=== PATIENT | male | born 1960 | race Caucasian/White ===

== ENCOUNTER 2016-11-22 06:31 | Inpatient (IN) | payer OTHER ==
[~2016-11-22] VITALS: Ht 182.9 cm; Wt 156.0 kg
[2016-11-22] MEDS ORDERED: OMEP40CA6 PO (06:37)
[2016-11-22] MEDS ORDERED: SODIUM CHLORIDE 0.9% 1,000 ML IV SCH ×2 (06:43→08:09)
[2016-11-22] MEDS ORDERED: ASPIRIN 325 MG TABLET PO STA (06:43)
[2016-11-22] MEDS ORDERED: NITROGLYCERIN/D5W PMX 250 ML IV PRN (07:00)
[2016-11-22] MEDS ORDERED: HEPARIN 5,000 UNITS/ML, 1ML IV ONE (07:00)
[2016-11-22] MEDS ORDERED: NITROGLYCERIN 0.4 MG BOTTLE (25 TABS) SL PRN (07:00)
[2016-11-22] MEDS ORDERED: FENTANYL PF 100 MCG/2ML IVPush PRN (07:00)
[2016-11-22] MEDS ORDERED: NITROGLYCERIN/D5W PMX 250 ML ONE (07:01)
[2016-11-22 07:12] LABS: IS PT STATUS REG ER OR PRE ER? YES
[2016-11-22] MEDS ORDERED: NITROGLYCERIN 5 MG/ML, 10ML ONE (07:24)
[2016-11-22] MEDS ORDERED: BIVALIRUDIN 250 MG ONE ×2 (07:24→08:38)
[2016-11-22] MEDS ORDERED: TICAGRELOR 90 MG TABLET ONE (07:24)
[2016-11-22] MEDS ORDERED: HEPARIN 1,000 UNITS/ML, 10ML ONE (07:24)
[2016-11-22] MEDS ORDERED: FENTANYL PF 100 MCG/2ML ONE (07:24)
[2016-11-22] MEDS ORDERED: VERAPAMIL 2.5 MG/ML, 2ML ONE (07:24)
[2016-11-22] MEDS ORDERED: MIDAZOLAM 1 MG/ML, 5ML ONE (07:24)
[2016-11-22] MEDS ORDERED: LIDOCAINE 2%, 20ML ONE (07:25)
[2016-11-22] MEDS ORDERED: HEPARIN 5,000 UNITS/ML, 1ML ONE (07:43)
[2016-11-22] MEDS ORDERED: ASPIRIN 81 MG TABLET CHEW ONE (07:43)
[2016-11-22] MEDS ORDERED: ONDANSETRON 2MG/ML, 2ML IVPush PRN (08:30)
[2016-11-22] MEDS ORDERED: PANTOPROZOLE 40MG TABLET PO SCH (08:30)
[2016-11-22] MEDS ORDERED: BISACODYL 5 MG EC TABLET PO PRN (08:30)
[2016-11-22] MEDS ORDERED: ZOLPIDEM 5MG TABLET PO PRN (08:30)
[2016-11-22] MEDS ORDERED: ACETAMINOPHEN 325 MG TABLET PO PRN (08:30)
[2016-11-22] MEDS: TICAGRELOR 90 MG TABLET PO SCH ×2 (10:04→20:00)
[2016-11-22] MEDS: METOPROLOL SUCCINATE 25 MG TAB.ER.24H PO SCH (10:43)
[2016-11-22] MEDS: ASPIRIN 81 MG TABLET EC PO SCH (10:43)
[2016-11-22] MEDS: OMEPRAZOLE 20 MG CAPSULE.DR PO SCH (11:00)
[2016-11-22] MEDS ORDERED: ENALAPRILAT 1.25 MG/ML, 2ML IV PRN (11:30)
[2016-11-22] MEDS: ATORVASTATIN 80 MG TABLET PO SCH (20:00)
[2016-11-23 04:49] LABS: BLOOD UREA NITROGEN 13 mg/dL (7-18)
[2016-11-23 06:02] VITALS: BP 130/90
[2016-11-23] MEDS: METOPROLOL SUCCINATE 25 MG TAB.ER.24H PO SCH (06:32)
[2016-11-23] MEDS: LISINOPRIL 5 MG TABLET PO SCH (10:15)
[2016-11-23] MEDS: TICAGRELOR 90 MG TABLET PO SCH ×2 (10:15→21:14)
[2016-11-23] MEDS: ASPIRIN 81 MG TABLET EC PO SCH (10:16)
[2016-11-23] MEDS: OMEPRAZOLE 20 MG CAPSULE.DR PO SCH (10:16)
[2016-11-23 15:14] VITALS: BP 115/72
[2016-11-23 20:37] VITALS: BP 148/83
[2016-11-23] MEDS: ATORVASTATIN 80 MG TABLET PO SCH (21:14)
[2016-11-24 02:56] VITALS: BP 123/68
[2016-11-24 05:19] LABS: BLOOD UREA NITROGEN 15 mg/dL (7-18)
[2016-11-24] MEDS: METOPROLOL SUCCINATE 25 MG TAB.ER.24H PO SCH (06:28)
[2016-11-24 08:11] VITALS: BP 142/84
[2016-11-24] MEDS: ASPIRIN 81 MG TABLET EC PO SCH (08:33)
[2016-11-24] MEDS: TICAGRELOR 90 MG TABLET PO SCH (08:33)
[2016-11-24] MEDS: OMEPRAZOLE 20 MG CAPSULE.DR PO SCH (08:33)
[2016-11-24] MEDS: LISINOPRIL 5 MG TABLET PO SCH (08:34)
[2016-11-24] MEDS ORDERED: TICA90TA PO (08:53)
[2016-11-24] MEDS ORDERED: METO25TA91 PO (08:53)
[2016-11-24] MEDS ORDERED: LISI5TAB7 PO (08:53)
[2016-11-24] MEDS ORDERED: ASPI-621 PO (08:53)
[2016-11-24] MEDS ORDERED: ATOR80TA75 PO (08:53)
== END 2016-11-24 11:11 | disposition home or self-care (01) | DRG 247 ==
LOC: ED 07:09 → EDIP 07:11 → CCU 08:24 → 5SO 11-23 11:51 → DCLOUNGE 11-24 10:37
PROVIDERS: ADMIT Internal Medicine Cardiovascular Disease; ATTEND Internal Medicine Cardiovascular Disease
PROC: 027034Z Dilation of Coronary Artery, One Artery with Drug-eluting Intraluminal Device, Percutaneous Approach (ICD-10-PCS; principal; 2016-11-22)
PROC: B2111ZZ Fluoroscopy of Multiple Coronary Arteries using Low Osmolar Contrast (ICD-10-PCS; 2016-11-22)
PROC: 4A023N7 Measurement of Cardiac Sampling and Pressure, Left Heart, Percutaneous Approach (ICD-10-PCS; 2016-11-22)
DX: I21.19 ST elevation (STEMI) myocardial infarction involving other coronary artery of inferior wall (principal); I47.2 Ventricular tachycardia; Z68.42 Body mass index [BMI] 45.0-49.9, adult; F17.210 Nicotine dependence, cigarettes, uncomplicated; I25.10 Atherosclerotic heart disease of native coronary artery without angina pectoris; K21.9 Gastro-esophageal reflux disease without esophagitis; E78.5 Hyperlipidemia, unspecified; I10 Essential (primary) hypertension; E66.8 Other obesity; Z71.6 Tobacco abuse counseling; Z82.49 Family history of ischemic heart disease and other diseases of the circulatory system
CPT/HCPCS: 36415; 71010; 80047; 80048; 82040; 84484; 85014; 85018; 85025; 85520; 85610; 85730; 87081; 93005; 93306; 93458; 96365; 96375; C1769; C1894; J0583; J1644; J2250; J3010; J3490; C1725; C1874; C1887; J7030; Q9967

== ENCOUNTER → 2017-01-06 | Outpatient (CLI) | payer OTHER ==
[~2017-01-06] MED LIST: ASPI-621 PO; ATOR80TA75 PO; LISI5TAB7 PO; METO25TA91 PO; OMEP40CA6 PO; TICA90TA PO
== END | disposition home or self-care (01) ==
LOC: CVU 07:46
PROVIDERS: ATTEND Internal Medicine Cardiovascular Disease
DX: I21.21 ST elevation (STEMI) myocardial infarction involving left circumflex coronary artery (principal); I35.0 Nonrheumatic aortic (valve) stenosis
CPT/HCPCS: 93306

== ENCOUNTER → 2017-01-20 | Outpatient (CLI) | payer OTHER ==
[~2017-01-20] MED LIST changes: +REGADENOSON 0.4 MG/5 ML SYRINGE ONE
== END | disposition home or self-care (01) ==
LOC: CFH 07:38
PROVIDERS: ATTEND Physician Assistant Medical
DX: I25.9 Chronic ischemic heart disease, unspecified (principal); I21.21 ST elevation (STEMI) myocardial infarction involving left circumflex coronary artery
CPT/HCPCS: 78452; 93017; A9502; J2785

== ENCOUNTER 2017-01-29 06:15 | Day surgery (SDC) | payer OTHER ==
[2017-01-28 13:24] VITALS: BP 177/77
[2017-01-28 14:10] LABS: ASPARTATE AMINO TRANSFERASE 33 U/L (15-37); BLOOD UREA NITROGEN 11 mg/dL (7-18)
[~2017-01-29] VITALS: Ht 185.4 cm; Wt 143.2 kg
[~2017-01-29 06:15] MED LIST changes: +LISI-424 PO; -REGADENOSON 0.4 MG/5 ML SYRINGE ONE; +TERB250T3 PO
[2017-01-29] MEDS ORDERED: HEPARIN 1,000 UNITS/ML, 10ML ONE (07:18)
[2017-01-29] MEDS ORDERED: BIVALIRUDIN 250 MG ONE (07:18)
[2017-01-29] MEDS ORDERED: LIDOCAINE 2%, 20ML ONE (07:18)
[2017-01-29] MEDS ORDERED: MIDAZOLAM 1 MG/ML, 5ML ONE (07:18)
[2017-01-29] MEDS ORDERED: TICAGRELOR 90 MG TABLET ONE (07:18)
[2017-01-29] MEDS ORDERED: FENTANYL PF 100 MCG/2ML ONE (07:18)
[2017-01-29] MEDS ORDERED: VERAPAMIL 2.5 MG/ML, 2ML ONE (07:18)
[2017-01-29] MEDS ORDERED: ACETAMINOPHEN 325 MG TABLET PO PRN (08:30)
== END 2017-01-29 10:51 ==
LOC: CACL 06:15
PROVIDERS: ATTEND Internal Medicine Cardiovascular Disease
DX: I25.10 Atherosclerotic heart disease of native coronary artery without angina pectoris (principal); E78.2 Mixed hyperlipidemia; Z98.61 Coronary angioplasty status; Z79.82 Long term (current) use of aspirin
CPT/HCPCS: 36415; 71020; 80053; 85025; 85610; 85730; 93005; 93458; 99156; 99157; C1769; C1894; J1644; J2250; J3010; J3490; Q9967; J0583

== ENCOUNTER → 2017-08-30 | Outpatient (CLI) | payer OTHER ==
[~2017-08-30] MED LIST changes: +ATOR-2 PO; -ATOR80TA75 PO
== END | disposition home or self-care (01) ==
LOC: CVU 06:44
PROVIDERS: ATTEND Internal Medicine Cardiovascular Disease
DX: E78.5 Hyperlipidemia, unspecified (principal); Z98.61 Coronary angioplasty status; Z87.891 Personal history of nicotine dependence
CPT/HCPCS: 93880

== ENCOUNTER → 2017-11-16 | Outpatient (CLI) | payer OTHER ==
[~2017-11-16] MED LIST changes: +REGADENOSON 0.4 MG/5 ML SYRINGE ONE
== END ==
LOC: CFH 07:29
PROVIDERS: ATTEND Internal Medicine Cardiovascular Disease
DX: I25.10 Atherosclerotic heart disease of native coronary artery without angina pectoris (principal); I10 Essential (primary) hypertension; I45.2 Bifascicular block
CPT/HCPCS: 78452; 93017; A9502; J2785

== ENCOUNTER → 2018-02-21 | Outpatient (CLI) | payer OTHER ==
[~2018-02-21] MED LIST changes: -REGADENOSON 0.4 MG/5 ML SYRINGE ONE
== END | disposition home or self-care (01) ==
LOC: CVU 06:47
PROVIDERS: ATTEND Internal Medicine Cardiovascular Disease
DX: I11.9 Hypertensive heart disease without heart failure (principal); E66.01 Morbid (severe) obesity due to excess calories; I25.10 Atherosclerotic heart disease of native coronary artery without angina pectoris; E78.5 Hyperlipidemia, unspecified; K21.9 Gastro-esophageal reflux disease without esophagitis; F17.210 Nicotine dependence, cigarettes, uncomplicated; Z98.61 Coronary angioplasty status; Z79.82 Long term (current) use of aspirin
CPT/HCPCS: 0399T; 93306

== ENCOUNTER → 2019-06-19 | Outpatient (CLI) | payer OTHER ==
[~2019-06-19] MED LIST changes: -ASPI-621 PO; +ASPI81TA45 PO; +OMEP40CA42 PO; -OMEP40CA6 PO
[2019-06-19 08:48] LABS: MICROSCOPIC AUTO
[2019-06-19 08:53] LABS: ALBUMIN 3.3 g/dL (3.4-5.0); ANION GAP 5 mmol/L (5-15); CALCIUM 8.5 mg/dL (8.5-10.1); CHLORIDE 109 mmol/L (98-107)
[2019-06-19 08:57] LABS: ALANINE AMINOTRANSFERASE 69 U/L (12-78); ALKALINE PHOSPHATASE 123 U/L (45-117); BILIRUBIN,TOTAL 0.6 mg/dL (0.2-1.0); CREATININE 0.86 mg/dL (0.7-1.3); TOTAL PROTEIN 7.5 g/dL (6.4-8.2)
== END | disposition home or self-care (01) ==
LOC: STAR 07:42
PROVIDERS: ATTEND Urology
DX: Z01.818 Encounter for other preprocedural examination (principal); N43.3 Hydrocele, unspecified; F15.10 Other stimulant abuse, uncomplicated; Z87.891 Personal history of nicotine dependence
CPT/HCPCS: 36415; 80053; 81001; 87077; 87086; 93005

== ENCOUNTER 2019-07-05 11:20 | Day surgery (SDC) | payer OTHER ==
[~2019-07-05] VITALS: Ht 185.4 cm; Wt 140.0 kg
[2019-07-05] MEDS ORDERED: LACTATED RINGERS 1,000 ML IV SCH (12:13)
[2019-07-05 12:14] VITALS: BP 166/108
[2019-07-05] MEDS ORDERED: LIDOCAINE-MPF 1%, 2ML INFIL ONE (12:30)
[2019-07-05] MEDS ORDERED: BUPIVACAINE/PF 0.5% ONE (13:17)
[2019-07-05] MEDS ORDERED: MIDAZOLAM 1 MG/ML, 2ML ONE (13:25)
[2019-07-05] MEDS ORDERED: FENTANYL PF 250 MCG/5ML ONE (13:25)
[2019-07-05] MEDS ORDERED: KETOROLAC 30 MG/1 ML ONE (13:27)
[2019-07-05] MEDS ORDERED: hydrALAzine 20 MG/ML, 1ML ONE (13:27)
[2019-07-05] MEDS ORDERED: ACETAMINOPHEN 325 MG TABLET PO PRN (14:00)
[2019-07-05] MEDS ORDERED: hydrALAzine 20 MG/ML, 1ML IV PRN (14:00)
[2019-07-05] MEDS ORDERED: HYDROmorphone 2 MG/ML, 1ML IVPush PRN (14:00)
[2019-07-05] MEDS ORDERED: FENTANYL PF 100 MCG/2ML IV PRN (14:00)
[2019-07-05] MEDS ORDERED: MEPERIDINE/PF 25MG/ML,1ML IVPush PRN (14:00)
[2019-07-05] MEDS ORDERED: PROMETHAZINE 25 MG/ML, 1ML IV PRN (14:00)
[2019-07-05] MEDS ORDERED: OXYcodone 5 MG/5 ML ORAL.SOL UDC PO PRN (14:00)
[2019-07-05] MEDS ORDERED: ONDANSETRON 2MG/ML, 2ML ONE (14:11)
[2019-07-05] MEDS ORDERED: LIDOCAINE-MPF 2% ,5ML ONE (14:11)
[2019-07-05] MEDS ORDERED: CEFAZOLIN 1,000 MG ONE (14:11)
[2019-07-05] MEDS ORDERED: ROCURONIUM 10MG/ML,5ML ONE (14:11)
[2019-07-05] MEDS ORDERED: SUGAMMADEX 200 MG/2 ML IVPush ONE (14:11)
[2019-07-05] MEDS ORDERED: DEXAMETHASONE 4 MG/ML, 1ML ONE (14:11)
[2019-07-05] MEDS ORDERED: PROPOFOL 10 MG/ML, 20ML ONE (14:11)
[2019-07-05] MEDS ORDERED: MEPERIDINE/PF 100 MG/ML ONE (14:28)
== END 2019-07-05 17:35 | disposition home or self-care (01) ==
LOC: OUT 11:20
PROVIDERS: ATTEND Urology
DX: N43.3 Hydrocele, unspecified (principal); I10 Essential (primary) hypertension; E78.5 Hyperlipidemia, unspecified; K21.9 Gastro-esophageal reflux disease without esophagitis; I25.2 Old myocardial infarction; I25.10 Atherosclerotic heart disease of native coronary artery without angina pectoris; Z79.899 Other long term (current) drug therapy; Z87.891 Personal history of nicotine dependence; Z82.49 Family history of ischemic heart disease and other diseases of the circulatory system; Z90.3 Acquired absence of stomach [part of]; Z98.890 Other specified postprocedural states
CPT/HCPCS: 55041; J0360; J0690; J1100; J1885; J2175; J2250; J2405; J2704; J3010; J7120

== ENCOUNTER → 2020-01-29 | Outpatient (CLI) | payer OTHER ==
[~2020-01-29] MED LIST changes: +REGADENOSON 0.4 MG/5 ML SYRINGE ONE
== END | disposition home or self-care (01) ==
LOC: CFH 07:32
PROVIDERS: ATTEND Internal Medicine Cardiovascular Disease
DX: I45.10 Unspecified right bundle-branch block (principal); Z98.61 Coronary angioplasty status
CPT/HCPCS: 78452; 93017; A9502; J2785

== ENCOUNTER 2020-06-24 15:14 | Inpatient (IN) | payer OTHER ==
[~2020-06-24] VITALS: Ht 185.4 cm; Wt 134.6 kg
[~2020-06-24 15:14] MED LIST changes: -REGADENOSON 0.4 MG/5 ML SYRINGE ONE
--- NOTE | 2020-06-24 16:15 | NUR ---
PT TO ROOM FROM LOBBY, TACHYPNEIC, SPO2 94-95% ON 15L/NRB, ABLE TO SPEAK 4-WORD SENTENCES, AOX4, COMFORT MEASURES PROVIDED, CALL LIGHT WITHIN REACH.
[2020-06-24] MEDS ORDERED: HYDR200T72 PO (16:25)
[2020-06-24] MEDS ORDERED: ZINC50TA47 PO (16:25)
[2020-06-24] MEDS ORDERED: OMEG1CAP39 PO (16:25)
[2020-06-24] MEDS ORDERED: CHOL10003 PO (16:25)
[2020-06-24] MEDS ORDERED: ACETAMINOPHEN 500 MG TABLET ONE (16:27)
[2020-06-24] MEDS ORDERED: ACETAMINOPHEN 500 MG TABLET PO ONE (16:30)
[2020-06-24] MEDS ORDERED: SODIUM CHLORIDE FLUSH 10ML SYR IVF ONE ×2 (16:30→17:00)
[2020-06-24] MEDS ORDERED: CEFTRIAXONE PMX 1GM/50ML 50 ML ONE (16:39)
[2020-06-24 16:51] LABS: ALBUMIN 2.4 g/dL (3.4-5.0); ANION GAP 7 mmol/L (5-15); CALCIUM 7.9 mg/dL (8.5-10.1); CHLORIDE 103 mmol/L (98-107)
[2020-06-24] MEDS: ASCORBIC ACID 500 MG TABLET PO SCH ×2 (16:51→20:53)
[2020-06-24] MEDS: AZITHROMYCIN 500 MG in SODIUM CHLORIDE 0.9% 250 ML IV SCH (16:51)
[2020-06-24] MEDS: CEFTRIAXONE PMX 2GM/50ML 50 ML IVPB SCH (16:51)
[2020-06-24] MEDS ORDERED: ENOXAPARIN 40 MG/0.4 ML ONE (16:53)
--- NOTE | 2020-06-24 16:57 | NUR ---
PT UPRIGHT ON GURNEY, TALKING ON PHONE AT TIMES, RESPONDS APPROP TO STAFF, VSS WHILE ON 15L/NRB, NO NEEDS AT THIS TIME, SEEN BY [facility], CALL LIGHT WITHIN REACH.
[2020-06-24 16:58] LABS: ALANINE AMINOTRANSFERASE 36 U/L (12-78); ALKALINE PHOSPHATASE 97 U/L (45-117); BILIRUBIN,TOTAL 0.8 mg/dL (0.2-1.0); CREATININE 1.06 mg/dL (0.7-1.3); TOTAL PROTEIN 7.6 g/dL (6.4-8.2); TROPONIN I 0.029 ng/mL (0.000-0.045)
[2020-06-24] MEDS ORDERED: morphine SULFATE 10 MG/ML, 1ML IVPush PRN (17:00)
[2020-06-24] MEDS ORDERED: ENOXAPARIN 40 MG/0.4 ML SQ SCH (17:00)
[2020-06-24] MEDS ORDERED: ACETAMINOPHEN 325 MG TABLET PO PRN (17:00)
[2020-06-24] MEDS ORDERED: CEFTRIAXONE PMX 1GM/50ML 50 ML IVPB ONE (17:00)
[2020-06-24] MEDS ORDERED: ONDANSETRON 2MG/ML, 2ML IVPush PRN (17:00)
[2020-06-24] MEDS ORDERED: LABETALOL 5MG/ML, 20ML IVPush PRN (17:00)
[2020-06-24] MEDS ORDERED: ENALAPRILAT 1.25 MG/ML, 2ML IVPush PRN (17:00)
[2020-06-24] MEDS ORDERED: AZITHROMYCIN 500 MG in SODIUM CHLORIDE 0.9% 250 ML IV ONE (17:00)
[2020-06-24] MEDS ORDERED: POLYETHYLENE GLYCOL 17 GM PACKET PO PRN (17:00)
[2020-06-24] MEDS ORDERED: BISACODYL 10 MG SUPP PR PRN (17:00)
[2020-06-24] MEDS ORDERED: OXYcodone IR 5MG TABLET PO PRN (17:00)
--- NOTE | 2020-06-24 17:10 | NUR ---
LAB AT BS FOR REDRAW
--- NOTE | 2020-06-24 17:20 | NUR ---
RT AT BS
[2020-06-24] MEDS ORDERED: REMDESIVIR 200 MG in SODIUM CHLORIDE 0.9% 250 ML IVPB ONE (17:30)
--- NOTE | 2020-06-24 17:30 | NUR ---
Pt to be admitted to CCU, room 541. Report called to [facility].
[2020-06-24 17:39] LABS: BASOPHILS % (AUTO) 0 % (0-1); EOSINOPHILS % (AUTO) 0 % (1-7); LYMPHOCYTES % (AUTO) 11 % (22-44); MEAN CORPUSCULAR HEMOGLOBIN 32.7 pg (27.5-34.5); MEAN CORPUSCULAR HGB CONC 34.5 g/dL (33.2-36.2); MEAN PLATELET VOLUME 9.2 fL (7.4-10.4); MONOCYTES % (AUTO) 12 % (2-9); NEUTROPHILS % (AUTO) 77 % (42-75); PLATELET COUNT 180 x10^3/uL (130-400); RED BLOOD COUNT 4.45 x10^6/uL (4.38-5.82); RED CELL DISTRIBUTION WIDTH 14.1 % (9.4-14.8)
[2020-06-24 17:47] LABS: MD NO
[2020-06-24 23:26] LABS: TROPONIN I 0.024 ng/mL (0.000-0.045)
[2020-06-25 05:20] LABS: ALBUMIN 2.3 g/dL (3.4-5.0); ANION GAP 6 mmol/L (5-15); CALCIUM 8.1 mg/dL (8.5-10.1); CHLORIDE 104 mmol/L (98-107)
[2020-06-25 05:23] LABS: ALANINE AMINOTRANSFERASE 33 U/L (12-78); ALKALINE PHOSPHATASE 95 U/L (45-117); BILIRUBIN,TOTAL 0.8 mg/dL (0.2-1.0); CREATININE 0.93 mg/dL (0.7-1.3); TOTAL PROTEIN 7.4 g/dL (6.4-8.2)
[2020-06-25 05:33] LABS: BASOPHILS % (AUTO) 0 % (0-1); EOSINOPHILS % (AUTO) 0 % (1-7); LYMPHOCYTES % (AUTO) 13 % (22-44); MEAN CORPUSCULAR HEMOGLOBIN 32.7 pg (27.5-34.5); MEAN CORPUSCULAR HGB CONC 34.8 g/dL (33.2-36.2); MEAN PLATELET VOLUME 9.9 fL (7.4-10.4); MONOCYTES % (AUTO) 9 % (2-9); NEUTROPHILS % (AUTO) 78 % (42-75); PLATELET COUNT 192 x10^3/uL (130-400); RED BLOOD COUNT 4.44 x10^6/uL (4.38-5.82); RED CELL DISTRIBUTION WIDTH 14.3 % (9.4-14.8)
[2020-06-25 05:36] LABS: MD NO
[2020-06-25] MEDS: ZINC SULFATE 220 MG CAPSULE PO SCH (08:16)
[2020-06-25] MEDS: SENNA/DOCUSATE TABLET PO SCH (08:17)
[2020-06-25] MEDS: ASCORBIC ACID 500 MG TABLET PO SCH ×2 (08:17→16:05)
[2020-06-25] MEDS: CHOLECALCIFEROL 5,000u TAB PO SCH (08:17)
[2020-06-25] MEDS: THIAMINE 100MG TABLET PO SCH (08:17)
[2020-06-25] MEDS: DEXAMETHASONE 4 MG/ML, 1ML IVPush SCH (08:17)
[2020-06-25] MEDS: ENOXAPARIN 30 MG/0.3 ML SQ SCH ×2 (10:57→23:48)
[2020-06-25] MEDS: NICOTINE 21 MG/24 HR PATCH.TD24 TD SCH (10:57)
[2020-06-25] MEDS ORDERED: LORazepam 2 MG/ML, 1ML IVPush PRN (11:30)
[2020-06-25] MEDS ORDERED: POTASSIUM CHLORIDE 20 MEQ TAB.ER.PRT PO ONE (11:30)
[2020-06-25] MEDS: ALBUTEROL HFA 90 MCG/SPRAY INH SCH ×3 (12:16→23:48)
[2020-06-25] MEDS: DIAZEPAM 10 MG TABLET PO SCH ×2 (16:05→23:48)
[2020-06-25] MEDS: CEFTRIAXONE PMX 2GM/50ML 50 ML IVPB SCH (16:06)
[2020-06-25] MEDS: FUROSEMIDE 40 MG/4 ML IV SCH (16:24)
[2020-06-25] MEDS: AZITHROMYCIN 500 MG in SODIUM CHLORIDE 0.9% 250 ML IV SCH ×2 (16:24→16:40)
[2020-06-25] MEDS: ATORVASTATIN 80 MG TABLET PO SCH (20:13)
[2020-06-25] MEDS: REMDESIVIR 100 MG in SODIUM CHLORIDE 0.9% 250 ML IVPB SCH (20:13)
[2020-06-25 20:30] VITALS: BP 147/89
[2020-06-26 00:54] VITALS: BP 126/64
[2020-06-26] MEDS: ALBUTEROL HFA 90 MCG/SPRAY INH SCH ×4 (05:34→22:54)
[2020-06-26 06:54] VITALS: BP 132/80
[2020-06-26 07:54] LABS: ALBUMIN 2.3 g/dL (3.4-5.0); ANION GAP 6 mmol/L (5-15); CALCIUM 8.6 mg/dL (8.5-10.1); CHLORIDE 109 mmol/L (98-107)
[2020-06-26 08:05] LABS: ALANINE AMINOTRANSFERASE 34 U/L (12-78); ALKALINE PHOSPHATASE 99 U/L (45-117); BILIRUBIN,TOTAL 0.8 mg/dL (0.2-1.0); CREATININE 0.78 mg/dL (0.7-1.3); TOTAL PROTEIN 7.5 g/dL (6.4-8.2)
[2020-06-26] MEDS: ZINC SULFATE 220 MG CAPSULE PO SCH (08:47)
[2020-06-26] MEDS: THIAMINE 100MG TABLET PO SCH (08:47)
[2020-06-26] MEDS: ASPIRIN 81 MG TABLET EC PO SCH (08:48)
[2020-06-26] MEDS: SENNA/DOCUSATE TABLET PO SCH (08:48)
[2020-06-26] MEDS: ASCORBIC ACID 500 MG TABLET PO SCH ×2 (08:49→17:30)
[2020-06-26] MEDS: DIAZEPAM 10 MG TABLET PO SCH ×2 (08:49→17:30)
[2020-06-26] MEDS: CHOLECALCIFEROL 5,000u TAB PO SCH (08:49)
[2020-06-26] MEDS: FUROSEMIDE 40 MG/4 ML IV SCH ×2 (08:50→17:31)
[2020-06-26] MEDS: DEXAMETHASONE 4 MG/ML, 1ML IVPush SCH (08:50)
[2020-06-26] MEDS ORDERED: POTASSIUM CHLORIDE 20 MEQ TAB.ER.PRT PO SCH (09:00)
[2020-06-26 12:02] VITALS: BP 146/78
[2020-06-26] MEDS: NICOTINE 21 MG/24 HR PATCH.TD24 TD SCH (12:16)
[2020-06-26] MEDS: CEFTRIAXONE PMX 2GM/50ML 50 ML IVPB SCH (17:37)
[2020-06-26 19:05] VITALS: BP 143/83
[2020-06-26] MEDS: AZITHROMYCIN 500 MG in SODIUM CHLORIDE 0.9% 250 ML IV SCH (19:08)
[2020-06-26] MEDS: REMDESIVIR 100 MG in SODIUM CHLORIDE 0.9% 250 ML IVPB SCH (20:58)
[2020-06-26] MEDS: ATORVASTATIN 80 MG TABLET PO SCH (20:58)
[2020-06-27 00:36] VITALS: BP 144/74
[2020-06-27] MEDS: ENOXAPARIN 40 MG/0.4 ML SQ SCH (00:46)
[2020-06-27] MEDS: DIAZEPAM 10 MG TABLET PO SCH ×3 (01:00→17:31)
[2020-06-27] MEDS: ALBUTEROL HFA 90 MCG/SPRAY INH SCH ×4 (05:17→22:55)
[2020-06-27 06:26] LABS: ALBUMIN 2.3 g/dL (3.4-5.0); ANION GAP 6 mmol/L (5-15); CALCIUM 8.5 mg/dL (8.5-10.1); CHLORIDE 108 mmol/L (98-107)
[2020-06-27 06:29] LABS: ALANINE AMINOTRANSFERASE 46 U/L (12-78); ALKALINE PHOSPHATASE 96 U/L (45-117); BILIRUBIN,TOTAL 0.7 mg/dL (0.2-1.0); CREATININE 0.75 mg/dL (0.7-1.3); TOTAL PROTEIN 7.3 g/dL (6.4-8.2)
[2020-06-27 08:02] VITALS: BP 147/88
[2020-06-27] MEDS: ZINC SULFATE 220 MG CAPSULE PO SCH (08:50)
[2020-06-27] MEDS: ASCORBIC ACID 500 MG TABLET PO SCH ×2 (08:50→17:31)
[2020-06-27] MEDS: ASPIRIN 81 MG TABLET EC PO SCH (08:51)
[2020-06-27] MEDS: SENNA/DOCUSATE TABLET PO SCH (08:51)
[2020-06-27] MEDS: DEXAMETHASONE 4 MG/ML, 1ML IVPush SCH (08:51)
[2020-06-27] MEDS: THIAMINE 100MG TABLET PO SCH (08:51)
[2020-06-27] MEDS: CHOLECALCIFEROL 5,000u TAB PO SCH (08:51)
[2020-06-27 14:00] VITALS: BP 141/83
[2020-06-27] MEDS: NICOTINE 21 MG/24 HR PATCH.TD24 TD SCH (14:03)
[2020-06-27] MEDS: CEFTRIAXONE PMX 2GM/50ML 50 ML IVPB SCH (17:32)
[2020-06-27] MEDS: AZITHROMYCIN 500 MG in SODIUM CHLORIDE 0.9% 250 ML IV SCH (18:38)
[2020-06-27 19:15] VITALS: BP 148/91
[2020-06-27] MEDS: ATORVASTATIN 80 MG TABLET PO SCH (20:36)
[2020-06-27] MEDS: REMDESIVIR 100 MG in SODIUM CHLORIDE 0.9% 250 ML IVPB SCH (20:36)
[2020-06-28] VITALS (10 sets, daily range): BP systolic 146–187; BP diastolic 73–106
[2020-06-28] MEDS: ENOXAPARIN 40 MG/0.4 ML SQ SCH (00:53)
[2020-06-28] MEDS: DIAZEPAM 10 MG TABLET PO SCH ×3 (01:03→16:45)
[2020-06-28] MEDS: hydrALAzine 20 MG/ML, 1ML IV PRN ×2 (01:25→20:48)
[2020-06-28] MEDS: ALBUTEROL HFA 90 MCG/SPRAY INH SCH ×3 (05:29→16:45)
[2020-06-28] MEDS ORDERED: hydrALAzine 20 MG/ML, 1ML IV ONE (06:00)
[2020-06-28 06:17] LABS: CHLORIDE 107 mmol/L (98-107)
[2020-06-28 06:30] LABS: ALANINE AMINOTRANSFERASE 62 U/L (12-78); ALBUMIN 2.3 g/dL (3.4-5.0); ALKALINE PHOSPHATASE 99 U/L (45-117); ANION GAP 6 mmol/L (5-15); BILIRUBIN,TOTAL 0.8 mg/dL (0.2-1.0); CALCIUM 8.2 mg/dL (8.5-10.1); CREATININE 0.62 mg/dL (0.7-1.3); TOTAL PROTEIN 7.3 g/dL (6.4-8.2)
[2020-06-28] MEDS: SENNA/DOCUSATE TABLET PO SCH (09:04)
[2020-06-28] MEDS: CHOLECALCIFEROL 5,000u TAB PO SCH (09:05)
[2020-06-28] MEDS: ASCORBIC ACID 500 MG TABLET PO SCH ×2 (09:05→16:45)
[2020-06-28] MEDS: AMLODIPINE 10 MG TAB PO SCH (09:05)
[2020-06-28] MEDS: THIAMINE 100MG TABLET PO SCH (09:05)
[2020-06-28] MEDS: ASPIRIN 81 MG TABLET EC PO SCH (09:05)
[2020-06-28] MEDS: ZINC SULFATE 220 MG CAPSULE PO SCH (09:05)
[2020-06-28] MEDS: DEXAMETHASONE 4 MG/ML, 1ML IVPush SCH (09:06)
[2020-06-28] MEDS: NICOTINE 21 MG/24 HR PATCH.TD24 TD SCH (14:07)
[2020-06-28] MEDS: CEFTRIAXONE PMX 2GM/50ML 50 ML IVPB SCH (16:47)
[2020-06-28] MEDS: AZITHROMYCIN 500 MG in SODIUM CHLORIDE 0.9% 250 ML IV SCH (17:32)
[2020-06-28] MEDS: REMDESIVIR 100 MG in SODIUM CHLORIDE 0.9% 250 ML IVPB SCH (20:42)
[2020-06-28] MEDS: ATORVASTATIN 80 MG TABLET PO SCH (20:42)
[2020-06-29] VITALS (7 sets, daily range): BP systolic 130–201; BP diastolic 79–100
[2020-06-29] MEDS: ALBUTEROL HFA 90 MCG/SPRAY INH SCH ×4 (00:13→16:37)
[2020-06-29] MEDS: ENOXAPARIN 40 MG/0.4 ML SQ SCH (00:14)
[2020-06-29] MEDS: DIAZEPAM 10 MG TABLET PO SCH ×3 (01:29→17:00)
[2020-06-29] MEDS ORDERED: hydrALAzine 20 MG/ML, 1ML IV ONE (01:30)
[2020-06-29] MEDS: LISINOPRIL 5 MG TABLET PO SCH ×2 (07:45→09:43)
[2020-06-29] MEDS: AMLODIPINE 10 MG TAB PO SCH (07:45)
[2020-06-29] MEDS: DEXAMETHASONE 4 MG/ML, 1ML IVPush SCH (07:46)
[2020-06-29] MEDS ORDERED: CHOLECALCIFEROL 5,000u TAB PO SCH (09:00)
[2020-06-29] MEDS ORDERED: METOPROLOL SUCCINATE 25 MG TAB.ER.24H PO SCH (09:00)
[2020-06-29] MEDS: ASCORBIC ACID 500 MG TABLET PO SCH ×2 (09:42→16:37)
[2020-06-29] MEDS: THIAMINE 100MG TABLET PO SCH (09:43)
[2020-06-29] MEDS: SENNA/DOCUSATE TABLET PO SCH (09:43)
[2020-06-29] MEDS: ZINC SULFATE 220 MG CAPSULE PO SCH (09:43)
[2020-06-29] MEDS: ASPIRIN 81 MG TABLET EC PO SCH (09:43)
[2020-06-29] MEDS: NICOTINE 21 MG/24 HR PATCH.TD24 TD SCH (12:01)
[2020-06-29] MEDS ORDERED: ASCO500T9 PO (14:57)
[2020-06-29] MEDS ORDERED: CEFD300C37 PO (14:57)
[2020-06-29] MEDS ORDERED: GUAI12009 PO (14:57)
[2020-06-29] MEDS ORDERED: DEXA6TAB6 PO (14:57)
[2020-06-29] MEDS: CEFTRIAXONE PMX 2GM/50ML 50 ML IVPB SCH (17:26)
[2020-06-29] MEDS: AZITHROMYCIN 500 MG in SODIUM CHLORIDE 0.9% 250 ML IV SCH (17:59)
== END 2020-06-29 22:42 | disposition home or self-care (01) | DRG 177 ==
LOC: ED 16:37 → EDIP 16:38 → ED 16:53 → CCU 17:36 → 4EST 06-25 18:01
PROVIDERS: ADMIT Internal Medicine; ATTEND Internal Medicine
PROC: XW033E5 Introduction of Remdesivir Anti-infective into Peripheral Vein, Percutaneous Approach, New Technology Group 5 (ICD-10-PCS; principal; 2020-06-25)
DX: U07.1 COVID-19 (principal); J96.01 Acute respiratory failure with hypoxia; J12.89 Other viral pneumonia; E43 Unspecified severe protein-calorie malnutrition; J81.1 Chronic pulmonary edema; E87.1 Hypo-osmolality and hyponatremia; K21.9 Gastro-esophageal reflux disease without esophagitis; I25.10 Atherosclerotic heart disease of native coronary artery without angina pectoris; F17.210 Nicotine dependence, cigarettes, uncomplicated; E87.6 Hypokalemia; E78.5 Hyperlipidemia, unspecified; E66.9 Obesity, unspecified; Z98.84 Bariatric surgery status; Z82.49 Family history of ischemic heart disease and other diseases of the circulatory system; I25.2 Old myocardial infarction; Z68.39 Body mass index [BMI] 39.0-39.9, adult
CPT/HCPCS: 36415; 36600; 71045; 80053; 82803; 83605; 83615; 83735; 84100; 84145; 84484; 85025; 85379; 86140; 87040; 87070; 87081; 87205; 93005; 96365; 99285; G0378; J0456; J0696; J1100; J1650; J1940; J0360; J7050

== ENCOUNTER 2021-01-21 07:22 | Outpatient (CLI) | payer BC ==
[~2021-01-21 07:22] MED LIST changes: +ASCO500T9 PO; +CEFD300C37 PO; +CHOL10003 PO; +DEXA6TAB6 PO; +GUAI12009 PO; +HYDR200T72 PO; -LISI-424 PO; +LISI-606 PO; +OMEG1CAP39 PO; -OMEP40CA42 PO; +OMEP40CA8 PO; +ZINC50TA47 PO
[2021-01-21] MEDS ORDERED: REGADENOSON 0.4 MG/5 ML SYRINGE ONE (07:37)
== END 2021-01-22 23:59 | disposition home or self-care (01) ==
LOC: CFH 07:22
PROVIDERS: ATTEND Internal Medicine Cardiovascular Disease
DX: I25.9 Chronic ischemic heart disease, unspecified (principal); I10 Essential (primary) hypertension; Z98.61 Coronary angioplasty status
CPT/HCPCS: 78452; 93017; A9502; J2785

== ENCOUNTER → 2021-01-30 | Day surgery (SDC) | payer BC ==
[~2021-01-30] VITALS: Ht 185.4 cm; Wt 143.0 kg
[~2021-01-30] MED LIST changes: +FENTANYL PF 100 MCG/2ML ONE; +HEPARIN 1,000 UNITS/ML, 10ML ONE; +LIDOCAINE-MPF 1%, 5ML ONE; +MIDAZOLAM 1 MG/ML, 2ML ONE; +SODIUM CHLORIDE 0.9% 1,000 ML IV SCH; +VERAPAMIL 2.5 MG/ML, 2ML ONE
[2021-01-30 13:40] LABS: BASOPHILS % (AUTO) 1 % (0-1); EOSINOPHILS % (AUTO) 3 % (1-7); LYMPHOCYTES % (AUTO) 19 % (22-44); MEAN CORPUSCULAR HEMOGLOBIN 32.9 pg (27.5-34.5); MEAN CORPUSCULAR HGB CONC 34.6 g/dL (33.2-36.2); MEAN PLATELET VOLUME 9.3 fL (7.4-10.4); MONOCYTES % (AUTO) 10 % (2-9); NEUTROPHILS % (AUTO) 68 % (42-75); PLATELET COUNT 196 x10^3/uL (130-400); RED BLOOD COUNT 5.07 x10^6/uL (4.38-5.82); RED CELL DISTRIBUTION WIDTH 13.9 % (9.4-14.8)
[2021-01-30 13:50] LABS: ANION GAP 7 mmol/L (5-15); CHLORIDE 104 mmol/L (98-107); CREATININE 0.82 mg/dL (0.7-1.3)
== END | disposition home or self-care (01) ==
LOC: CACL 12:08
PROVIDERS: ATTEND Internal Medicine Cardiovascular Disease
DX: I25.10 Atherosclerotic heart disease of native coronary artery without angina pectoris (principal); I25.2 Old myocardial infarction; I10 Essential (primary) hypertension; E78.2 Mixed hyperlipidemia; E66.3 Overweight; Z68.41 Body mass index [BMI] 40.0-44.9, adult; Z79.82 Long term (current) use of aspirin; Z79.899 Other long term (current) drug therapy; Z95.5 Presence of coronary angioplasty implant and graft
CPT/HCPCS: 36415; 80048; 85025; 93458; 99156; C1769; C1894; J1644; J2250; J3010; Q9967